=== PATIENT | male | born 1950 | race Caucasian/White ===

== ENCOUNTER 2016-10-19 09:32 | Inpatient (IN) | payer OTHER, MEDICARE ==
[2016-10-10 13:36] LABS: HEMATOCRIT 42.6 % (40.0-51.0); HEMOGLOBIN 13.9 g/dL (13.6-17.8)
[2016-10-10 13:53] LABS: BUN (BLOOD UREA NITROGEN) 9 MG/DL (6-23); CALCIUM, SERUM 8.6 MG/DL (8.5-10.4); CHLORIDE, SERUM 101 MMOL/L (96-112); CO2 (CARBON DIOXIDE) 31 MMOL/L (24-34); CREATININE 0.96 MG/DL (0.70-1.30); GFR AFRICAN AMERICAN 96 ML/MIN (>=60); GFR NON AFRICAN AMERICAN 83 ML/MIN (>=60); GLUCOSE, SERUM 188 MG/DL (60-99); SODIUM, SERUM 140 MMOL/L (135-148)
--- NOTE | ~2016-10-19 | PREOPHP ---
PreOp History and Physical [place] [id number] [facility] [place]. [address] NAME: GERARD WALDEN : 52 STATUS : ADM IN PAT#: [id number] AGE: 66 ADM/REG DATE : 10/19/16 MR#: [id number] REPORT SERV DATE: 10/20/16 DICTATED BY: AGUILAR SNOW DATE: 10/20/16 REPORT STATUS : Draft TRANSCRIBED BY: BRIGID DATE: 10/20/16 CHIEF COMPLAINT: Back pain. HISTORY OF PRESENT ILLNESS: The patient is a pleasant, 66-year-old with intractable back and lower extremity pain. He has failed multiple attempts at conservative treatment. After discussion of risks and benefits, elects to proceed with surgical intervention. REVIEW OF SYSTEMS: He denies any chest pain, shortness of breath, and bowel or bladder changes. ALLERGIES: DENIED. HOME MEDICATIONS: Lipitor, Neurontin, hydrocodone, Lantus, Humalog, Avapro, Synthroid, Lovenox, and Coumadin. PAST MEDICAL HISTORY: Diabetes, hypothyroidism, peripheral vascular disease, sleep apnea, history of DVT, chronic anticoagulation. FAMILY HISTORY: Noncontributory. PHYSICAL EXAMINATION: VITALS: Height 6 feet 3 inches, weight 282. GENERAL: The patient is healthy appearing, no acute distress at this time. PSYCH: He is alert and oriented x3. Normal mood and affect. Gait is antalgic. VASCULAR: No extremity swelling. SPINE: Forward flexed kyphotic posture with flat back. NEUROLOGIC: Strength in lower extremities remains neurologically intact. No focal deficits. HEART: Regular rate and rhythm. LUNGS: Clear to auscultation. ABDOMEN: Soft, nontender, nondistended with good bowel sounds. BREASTS: Deferred. RECTAL: Deferred. IMAGING: I have reviewed the MRI as well as x-rays. The patient does have a flat back deformity with loss of lordosis. He has L1 through S1 disc disease and stenosis with nerve root compression. ASSESSMENT: Degenerative scoliosis with kyphotic deformity from flat back. L1-S1 disc disease and stenosis. Chronic anticoagulation. PLAN: The patient presents today for surgical intervention. Consent was obtained. All questions were answered. We will have Dr. Del Rio from Vascular Surgery place an IVC filter due to the patient's coagulopathy. We will do this preoperatively and then plan for the Spine Surgery to follow that. PreOp History and Physical [facility] [address] [address] NAME: GERARD WALDEN : 52 STATUS : ADM IN PAT#: [id number] AGE: 66 ADM/REG DATE : 10/19/16 MR#: [id number] REPORT SERV DATE: 10/20/16 DICTATED BY: AGUILAR SNOW DATE: 10/20/16 REPORT STATUS : Draft TRANSCRIBED BY: BRIGID DATE: 10/20/16 BRYON/BRIGID Aguilar Snow DO / [id number] CC: DO PASHA Doan
--- NOTE | ~2016-10-19 | CN ---
Consultation Report [place] [address] [place]. [address] NAME: GERARD NARANJO : 52 STATUS : ADM IN PAT#: [id number] AGE: 66 ADM/REG DATE : 10/19/16 MR#: [id number] REPORT SERV DATE: 10/26/16 DICTATED BY: Ariadna MORE DATE: 10/26/16 REPORT STATUS : Draft TRANSCRIBED BY: MODGertrudis DATE: 10/26/16 CONSULTATION DATE OF CONSULTATION: 10/26/2016 CHIEF COMPLAINT: Postoperative urinary retention. HISTORY OF PRESENT ILLNESS: Mr. Naranjo is a 66-year-old white male, admitted on 10/19/2016 for some complicated spinal surgery. He had a stage procedure on 10/19/2016 and 10/22/2016 with an L1-S1 laminectomy and fusion with rods. He is had two voiding trials and failed both. The catheter was replaced yesterday for an unknown large volume. I saw him in 12/2011 when the nurses wanted to place a Pérez catheter. At that time, it appeared to me that he had probably some balloon trauma, and I was able to place a catheter at the bedside. He denies any voiding dysfunction prior to this hospitalization. PAST MEDICAL HISTORY: 1. Diabetes with neuropathy. 2. Hypertension. 3. Dysrhythmia. 4. DVT. 5. COPD. 6. Factor V deficiency. 7. Chronic back pain. 8. Arthritis. 9. Sleep apnea. 10.Spinal stenosis. 11.Hypothyroidism. PAST SURGICAL HISTORY: 1. As above. 2. Vein stripping. 3. Cholecystectomy. 4. Cardiac catheterization. 5. Femur fracture. 6. Left hip fracture. MEDICATIONS: Lipitor, Neurontin, insulin, Avapro, levothyroxine, and Coumadin. ALLERGIES: NO KNOWN DRUG ALLERGIES. SOCIAL HISTORY: The patient is . Previous smoker. Occasional alcohol use. FAMILY HISTORY: Negative for urologic disease. Consultation Report [place] [address] [place]. [address] NAME: GERARD NARANJO : 52 STATUS : ADM IN PAT#: [id number] AGE: 66 ADM/REG DATE : 10/19/16 MR#: [id number] REPORT SERV DATE: 10/26/16 DICTATED BY: Ariadna MORE DATE: 10/26/16 REPORT STATUS : Draft TRANSCRIBED BY: BRIGID DATE: 10/26/16 REVIEW OF SYSTEMS: A full 12-point review of systems is negative except as noted above. PHYSICAL EXAMINATION: GENERAL/VITAL SIGNS: Alert 66-year-old white male, afebrile, with normal vital signs. HEENT: Normocephalic and atraumatic. CHEST: No respiratory distress. HEART: Regular rate and rhythm. ABDOMEN: Protuberant, nontender, nondistended. GENITOURINARY: Normal external genitalia. Indwelling Pérez catheter draining clear urine. EXTREMITIES: No peripheral edema noted. NEUROLOGIC: The patient is ambulatory with help. PERTINENT LABORATORY DATA: Creatinine 0.75. White count 5700. Urinalysis, none obtained this admission. IMPRESSION: Postoperative urinary retention with no prior voiding dysfunction. PLAN: I would leave the Pérez for five to seven days and plan a voiding trial. He is going to rehab. They may want to do that there. If not, he is to follow up in my office for an painter and decorator appointment and discuss a voiding trial with plans to proceed as indicated depending upon how he does. I have told this to the patient, and he appears to understand. LIEN/BRIGID Ariadna More M.D. / [id number] CC: Aguilar Snow, PASHA ROLLINS
--- NOTE | ~2016-10-19 | CN ---
Consultation Report [facility] [address] [place]. [address] NAME: ORTEGA WALDEN : 52 STATUS : ADM IN PAT#: [id number] AGE: 66 ADM/REG DATE : 10/19/16 MR#: [id number] REPORT SERV DATE: 10/25/16 DICTATED BY: MELYSSA RAMÍERZ DATE: 10/25/16 REPORT STATUS : Draft TRANSCRIBED BY: MODL DATE: 10/25/16 DATE OF CONSULTATION: 10/24/2016 REASON FOR CONSULTATION: Consulted for hypertension/COPD/medical management. IDENTIFYING DATA: 1. PCP, Dr. Maykel Aguilar who is in [place], [place]. 2. [employer] Crew Lead, Dr. Haider Ahn. 3. Surgeon, Dr. Ortega Del Rio, who placed an IVC filter. 4. Corrugated Sheet Material Sheeter, Dr. Ortega Swain. 5. Orthopedist, Dr. Gigi Brown. 6. Urology, Dr. Ariadna Hidalgo. 7. Presently orthopedist, Dr. Aguilar Snow. HISTORY OF PRESENT ILLNESS: This is a 66-year-old male who was admitted by Dr. Aguilar Snow for intractable back and lower extremity pain that failed multiple outpatient conservative treatments. He was first scheduled on 10/19/2016 for a lumbar laminectomy. The surgery had to be stopped midway through the procedure because of the patient having bleeding and wheezing. The patient was taken to the PACU and then brought up to the MICU. At that time, he was under the care of the sanitation director. He had a CTA of the chest to rule out a pulmonary embolism. The patient also has a history of factor V Leiden deficiency, a DVT about 20 years ago. He had been taking Coumadin for the last four to five years, and during this procedure, he had to have an IVC filter placed by Dr. Ortega Del Rio. Postoperatively, there was a second surgery on 10/22/[address] Snow continued the patient's laminectomy of L1-S1 with decompression and fusion of T11 to the ilium posterolaterally. The patient has a history of previous DVT, which he is on chronic anticoagulation for factor V Leiden deficiency. He has a history also of dysrhythmias, neuropathy, obstructive sleep apnea, on home CPAP, as well as being a diabetic since 1991. The hospitalist group has been consulted for management of the patient's hypertension and COPD as well as overall medical management. The patient's history was obtained through careful interview with the patient coupled with review of [employer] and [employer]. PAST MEDICAL HISTORY: 1. Diabetic neuropathy. 2. Hypertension. 3. Dysrhythmias. 4. Deep venous thrombosis, on chronic anticoagulation. 5. Factor V Leiden deficiency. 6. Obstructive sleep apnea, on home CPAP. 7. Chronic back pain. 8. Arthritis. 9. Chronic obstructive pulmonary disease. 10.Lumbar spinal stenosis. Consultation Report [facility] [address] [place]. [address] NAME: ORTEGA WALDEN : 52 STATUS : ADM IN [facility]#: [id number] AGE: 66 ADM/REG DATE : 10/19/16 MR#: [id number] REPORT SERV DATE: 10/25/16 DICTATED BY: MELYSSA RAMÍREZ DATE: 10/25/16 REPORT STATUS : Draft TRANSCRIBED BY: BRIGID DATE: 10/25/16 11.Urinary retention. 12.Diabetes, questionable, some dictation states type 1, other dictations states type 2, which he was diagnosed in 1991, which his age would have been approximately 41 years old. He does state that his average blood sugar at home at that time prior to hospitalization was 95 to 115. 13.Hypothyroidism. HOME MEDICATIONS: 1. Lipitor 10 mg p.o. at bedtime. 2. Neurontin 800 mg p.o. at 8 a.m. and 12 noon. 3. Neurontin 1600 mg p.o. at bedtime. 4. [place] 5/325 one tablet p.o. three times a day p.r.n. pain. 5. Lantus injection subcutaneous twice a day. No dose is actually listed. 6. Humalog injection subcutaneous for which the patient uses a sliding scale. 7. Avapro 150 mg p.o. daily. 8. Levothyroxine 225 mcg p.o. daily. 9. Coumadin 9 mg p.o. daily. ALLERGIES: NO KNOWN ALLERGIES TO MEDICATIONS. THE PATENT DOES LIST GLUTEN AN ALLERGY. SOCIAL HISTORY: The patient is for approximately 44 years, has 3 grown children. Uses a cane at home. He does have a 2-cassie home. Previous smoker, quit about 25 years ago. Does have occasional alcohol use, one to two drinks per week. No illicit drug use. FAMILY HISTORY: The patient has 2 brothers who are alive and healthy. His mother and father both are from lung cancer and were heavy smokers. SURGICAL HISTORY: 1. Cholecystectomy in 1997. 2. Colonoscopy, 2008. 3. Cardiac cath, 2006. 4. Femur fracture in 2002. 5. Vein ligation in 1991. 6. Echo on 08/22/2016. 7. Left hip repair in 2011. 8. Stress test in 2006. REVIEW OF SYSTEMS: Negative other than what is included with HPI. The patient is alert and oriented. States no shortness of breath. No nausea or vomiting. No abdominal pain. No chest pain. No fever. Displays no agitation or confusion lying in bed, has applied his BiPAP for sleep. PHYSICAL EXAMINATION: VITAL SIGNS: From today, blood pressure 124/65, respiratory rate 18, heart rate 110, temperature 98.2, O2 saturation 93% on 3 L nasal cannula. Consultation Report [address] [place]. [address] NAME: ORTEGA WALDEN : 52 STATUS : ADM IN [facility]#: [id number] AGE: 66 ADM/REG DATE : 10/19/16 MR#: [id number] REPORT SERV DATE: 10/25/16 DICTATED BY: MELYSSA RAMÍREZ DATE: 10/25/16 REPORT STATUS : Draft TRANSCRIBED BY: BRIGID DATE: 10/25/16 GENERAL: This is an obese male 66 years old resting in bed in no acute distress. NEURO: His head is atraumatic, normocephalic. He is alert and oriented x3. Cranial nerves 2 through 12 are intact. His mood is appropriate. NECK: Supple. Trachea is midline. No JVD noted. No obvious thyromegaly or lymphadenopathy. EENT: His sclerae are nonicteric. Pupils are equal and reactive to light. Nares are patent. Mucous membranes moist. Tongue midline without deviation. Soft palate rises equally on phonation. CHEST: No pain with palpation. LUNGS: The patient has normal respiratory effort. He does have some expiratory wheezing. He states he has COPD. CARDIOVASCULAR: S1, S2. He is on telemetry. He is noted to have a sinus tachycardia with a rate of 101. ABDOMEN: Obese, soft, nontender. Active bowel sounds. No palpable organomegaly. Last bowel movement was on 10/19/2016 for which he state he has received medication for constipation. EXTREMITIES: He has normal distal pulses. No calf tenderness. He does have SCDs in place and he has lower extremity edema that is chronic. Surgical wound site dressing clean, dry, and intact. SKIN: Warm and dry. No unusual rashes or lesions. Normal color and turgor. PSYCH: The patient is cooperative, appropriate mood and affect. LABORATORY DATA: 1. Sodium 136, potassium 4.6, chloride 99, bicarb 22.4, BUN 9, creatinine 0.66. GFR 118, glucose 172, calcium 7.6, magnesium 1.8, phosphorus 1.8. White blood cells 6.1, hemoglobin 7.3, hematocrit 20.8, platelets 135, INR 1.1. 2. Chest x-ray on 10/23/2016 showed no new focal airspace disease. 3. TSH is 2.950 and free T4 on the chart was 1.65. 4. EKG on 10/10/2016 showed a sinus rhythm with a sinus arrhythmia, left axis deviation and incomplete left bundle-branch block, which showed an abnormal EKG. The patient had a cath on 03/31/2005, which showed normal coronary arteries and an EF of 65%. The patient had a sleep study on 04/03/2007. He is now on CPAP at bedtime for sleep apnea. ASSESSMENT AND PLAN: 1. Diabetes. The patient has been diabetic since 1991. He states his blood sugars he checks at times b.i.d. He averages 125 to 130. We will contact for a tobacco prevention health educator regarding diet monitoring if not already done. He will have a hemoglobin A1c checked in the morning. He is on Levemir b.i.d. and a sliding scale, which his blood sugars have been running high. We have changed him to a level 3 with a hypoglycemic protocol. 2. Hypertension. He does have a history of dysrhythmias. Aware. We will continue his Avapro and continue telemetry. 3. Neuropathy. Aware. He is a diabetic. We will continue his Neurontin. 4. Hypothyroidism. Aware. We will continue the patient's Synthroid. He has already had a TSH and a free T4 on the chart. Consultation Report [facility] [address] [place]. [address] NAME: ORTEGA WALDEN : 52 STATUS : ADM IN [facility]#: [id number] AGE: 66 ADM/REG DATE : 10/19/16 MR#: [id number] REPORT SERV DATE: 10/25/16 DICTATED BY: MELYSSA RAMÍREZ DATE: 10/25/16 REPORT STATUS : Draft TRANSCRIBED BY: BRIGID DATE: 10/25/16 5. Hyperlipidemia. Aware. The patient's Lipitor will be continued daily. 6. Obstructive sleep apnea where the patient has a history also of chronic obstructive pulmonary disease. Aware. He uses home CPAP. He will have a CPAP at bedtime and we will have albuterol nebs q.6 hours p.r.n. if he is short of breath or wheezing. 7. The patient has a history of factor V Leiden deficiency and having a deep venous thrombosis. Aware. Because of the bleeding postoperatively, the patient is off anticoagulation at present time. He has had an IVC filter placed and he has SCDs in place for his deep venous thrombosis prophylaxis. We will continue to monitor for any bleeding, a.m. labs, BMP, magnesium, CBC, hemoglobin A1c, and phosphorus. The hospitalist group would like to thank you for this consultation. Please let us know if we can be of any further assistance. ARPIT Melyssa Ramírez NP / [id number] CC: Aguilar Snow DO
--- NOTE | ~2016-10-19 | OP ---
Record Of Operation [facility] [address] [place]. [address] NAME: GERARD WALDEN : 52 STATUS : ADM IN PAT#: [id number] AGE: 66 ADM/REG DATE : 10/19/16 MR#: [id number] REPORT SERV DATE: 10/19/16 DICTATED BY: AGUILAR SETHI DATE: 10/19/16 REPORT STATUS : Draft TRANSCRIBED BY: MODL DATE: 10/19/16 DATE OF PROCEDURE: 10/19/2016 PREOPERATIVE DIAGNOSES: Degenerative scoliosis with flat back deformity, L1-S1 disc disease and stenosis, lumbar radiculopathy, intractable pain. POSTOPERATIVE DIAGNOSES: Degenerative scoliosis with flat back deformity, L1-S1 disc disease and stenosis, lumbar radiculopathy, intractable pain. PROCEDURE: T11 to ilium posterior segmental spinal instrumentation, use of neuromonitoring, use of intraoperative O-arm CT scan with computer navigation. The remaining portion of the procedure is going to be staged, bring him back likely on Sunday. Due to the amount of blood loss that we had encountered at the end of the current part of the procedure, I felt that it would be safest to bring him back another day for the remainder. He remained completely stable at this time, but the remaining work to be done would likely put him over a level that would no longer be safe to proceed. I discussed this with his and she agreed so that will be our plan. SURGEON: Aguilar Sethi DO. ANESTHESIA: General. ESTIMATED BLOOD LOSS: 600 mL. COMPLICATIONS: None. INDICATIONS: The patient is a 66-year-old with intractable back and leg pain failed conservative treatment. After discussion of risks and benefits, elected to proceed with surgery. PROCEDURE IN DETAIL: I identified the patient in the holding area. Consent was obtained. Went to the operating room. Underwent general anesthesia with endotracheal intubation. Prepped draped in the usual sterile fashion. Operative safety pause was performed, and then we proceeded. A midline longitudinal incision was made from T11 down to the ilium, taken through the fascial layer. Paraspinous muscles subperiosteally elevated to the tips of transverse processes. Self-retaining retractors were placed. O-arm registration frame placed on the spinous process. O-arm brought in for intraoperative CT scan. Computer registration materials were verified. Under computer guidance, pedicle screws from [employer] were placed from T11 down through the ilium. O-arm was brought back in to verify good placement of instrumentation. At this point, as detailed above, the surgery was stopped and we will plan to do the 2nd half of the surgery on Sunday as long as patient is medically stable. Irrigation was performed. Hemostasis was achieved. Subfascial drain was placed. Layered closure was performed. Sterile dressings were applied. The patient was awoken and extubated and taken to the recovery room in stable condition. OPERATIVE FINDINGS: L1-S1 disc disease and stenosis. Degenerative scoliosis with flat back Record Of Operation [facility] [address] [place]. [address] NAME: GERARD WALDEN : 52 STATUS : ADM IN [facility]#: [id number] AGE: 66 ADM/REG DATE : 10/19/16 MR#: [id number] REPORT SERV DATE: 10/19/16 DICTATED BY: AGUILAR SETHI DATE: 10/19/16 REPORT STATUS : Draft TRANSCRIBED BY: MODGertrudis DATE: 10/19/16 deformity. No sustained neuromonitoring alerts occurred. BRYON/BRIGID Aguilar Sethi DO / [id number] CC: Aguilar Sethi DO
--- NOTE | ~2016-10-19 | CN ---
Consultation Report [facility] [address] [place]. [address] NAME: GERARD WALDEN : 52 STATUS : ADM IN [facility]#: [id number] AGE: 66 ADM/REG DATE : 10/19/16 MR#: [id number] REPORT SERV DATE: 10/20/16 DICTATED BY: ARUN RODAS DATE: 10/19/16 REPORT STATUS : Draft TRANSCRIBED BY: MODL DATE: 10/19/16 CONSULTATION DATE OF CONSULTATION: 10/19/2016 TIME: 2012 hours. Seen in MICU bed 1. HISTORY OF PRESENT ILLNESS: I was called by anesthesiologist postop. He is a patient of Dr. Snow, the spinal surgeon. He was undergoing lumbar laminectomy. He had to stop midway through because of wheezing and bleeding. The patient was taken to the PACU yesterday and brought up to the ICU. Prior to this, the patient was taken to the CT scanner for CTA of the chest to rule out pulmonary embolism. He has a history of factor V Leiden deficiency. He had DVT about 20 years ago. He has been taking Coumadin for the last four years. During this operation, he had IVC filter placed. The patient is now awake and responsive, on THERMITE WELDER. PAST MEDICAL HISTORY: Significant for diabetes, hypothyroidism, peripheral vascular disease, sleep apnea, history of DVT, and chronic anticoagulation. The patient has had a cholecystectomy, colonoscopy, femoral and femur repair in the past. SOCIAL HISTORY: He used to smoke, but now quit. He is a social drinker. FAMILY HISTORY: Lung cancer positive in mother and father. HOME MEDICATIONS: Include atorvastatin 10 mg, gabapentin 800 mg tablet, Humalog KwikPen in SS solution, hydrocodone acetaminophen 5/325, irbesartan 150, Lantus SoloSTAR 100 units solution 20 mg/mL solution, levothyroxine 25 mcg tablet, warfarin 1 mg, levothyroxine 200 mcg; medications are noted. ALLERGIES: NO KNOWN ALLERGIES. REVIEW OF SYSTEMS: Otherwise negative and noncontributory. PHYSICAL EXAMINATION: VITAL SIGNS: Blood pressure of 98/53, pulse is slightly irregular but appears to be sinus rhythm. He is afebrile. GENERAL: He is awake. HEENT: Head is normocephalic. Sclerae and conjunctivae are clear. NECK: Supple. CHEST: Decreased breath sounds. Clear to auscultation and percussion. No wheezing or Rhonchi. CARDIAC: S1 and S2. No murmurs or gallops, slightly irregular. ABDOMEN: Soft and nontender. No masses. Scar from previous cholecystectomy. Consultation Report [facility] [address] [place]. [address] NAME: GERARD WALDEN : 52 STATUS : ADM IN [facility]#: [id number] AGE: 66 ADM/REG DATE : 10/19/16 MR#: [id number] REPORT SERV DATE: 10/20/16 DICTATED BY: ARUN RODAS DATE: 10/19/16 REPORT STATUS : Draft TRANSCRIBED BY: MODL DATE: 10/19/16 EXTREMITIES: No clubbing, cyanosis, or edema. NEUROLOGIC: Cranial nerves 2 through 12 appear to be intact. He can move all extremities. LABORATORY DATA: Laboratory data shows a sodium 140, potassium 4.8, chloride 106, CO2 of 23, BUN 19, creatinine 0.4, glucose 215, calcium 7.5. CBC shows H and H of 11.5 and 33.8, white count 7200, platelet count 39,000. Arterial blood gas at 1840 hours shows pH 7.33, pCO2 of 44, pO2 of [address] of the chest shows: 1. No CTA evidence of pulmonary embolism. 2. Bibasilar subsegmental atelectasis. 3. Status post recent spine fusion surgery, pedicle screws from T11 and L1. Small amounts of gas in paraspinal soft tissue plain consistent with recent surgery. A surgical drain within soft tissue posterior thorax and right-sided up to T12 level posterior elements. 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 Chest x-ray shows small lung volumes bibasilar atelectasis. Anesthesia record reviewed. Urine output of 400 and did not record any estimated blood loss. The patient is currently on no pressors. IMPRESSION: 1. Status post surgery, status post Rafaela filter, history of factor V Leiden deficiency, no evidence of pulmonary emboli. Continue present pain medications. Will return to surgery on (I believe) Sunday. 2. Diabetes. 3. Hypothyroidism. PLAN: Continue present therapy. RP/MODL Arun Rodas M.D. / [id number] CC: DO Maykel Doan
--- NOTE | ~2016-10-19 | OP ---
Record Of Operation [facility] [address] [place]. [address] NAME: GERARD WALDEN : 52 STATUS : ADM IN PAT#: [id number] AGE: 66 ADM/REG DATE : 10/19/16 MR#: [id number] REPORT SERV DATE: 10/22/16 DICTATED BY: AGUILAR SNOW DATE: 10/22/16 REPORT STATUS : Draft TRANSCRIBED BY: MODL DATE: 10/22/16 DATE OF PROCEDURE: 10/22/2016 PREOPERATIVE DIAGNOSIS: L1-S1 disk disease and stenosis, degenerative scoliosis, flat back deformity. POSTOPERATIVE DIAGNOSIS: L1-S1 disk disease and stenosis, degenerative scoliosis, flat back deformity. PROCEDURE: This is the second stage of a procedure that was started on 10/19/2016. This portion today included T11 to ilium posterolateral fusion bilaterally. Connection of previously placed pedicle screws with bilateral rods T11 to the ilium. Use of local morcellized autograft and allograft bone matrix, neuromonitoring, laminectomy L1-S1 with decompression of bilateral L1-S1 nerve roots. SURGEON: Aguilar Snow DO. ANESTHESIA: General. ESTIMATED BLOOD LOSS: 800 mL. 450 mL returned via Cell Saver. COMPLICATIONS: None. INDICATIONS: Please see previous operative note from 10/19/2016 for indications. DESCRIPTION OF PROCEDURE: I identified the patient in the ICU. Consent was obtained. Went to the operating room. Underwent general anesthesia with endotracheal intubation. Prepped and draped in the usual sterile fashion. Operative safety pause was performed, then we proceeded. A midline longitudinal incision was made over the previous incision. Muscles were opened again and self-retaining retractors were placed. Rongeur was used to remove spinous process and underlying lamina at L1-S1. Kerrison removed remaining lamina and underlying ligamentum flavum. Performed foraminotomies and partial facetectomies L1-S1 bilaterally. Rods were cut and contoured to appropriate shape and length, placed over the screws from T11 to the ilium. Setscrews were placed and final tightened. A high-speed decorticating bur was used to decorticate the remaining bony surfaces T11 to the ilium. Irrigation performed. Hemostasis achieved. Local morcellized autograft and allograft bone matrix were packed over the decorticated surfaces T11 to the ilium. Subfascial drain was placed. Vancomycin powder sprinkled over the surgical wound. Layered closure performed. Sterile dressings applied. The patient awoke and extubated and taken to the recovery room in stable condition. OPERATIVE FINDINGS: Degenerative scoliosis with flat back deformity, L1-S1 disk disease. No sustained neuromonitoring alerts occurred. Record Of Operation [facility] [address] [place]. [address] NAME: GERARD WALDEN : 52 STATUS : ADM IN [facility]#: [id number] AGE: 66 ADM/REG DATE : 10/19/16 MR#: [id number] REPORT SERV DATE: 10/22/16 DICTATED BY: AGUILAR SNOW DATE: 10/22/16 REPORT STATUS : Draft TRANSCRIBED BY: MODGertrudis DATE: 10/22/16 BRYON/BRIGID Aguilar Snow DO / [id number] CC: DO REY Doan DEVIN L
--- NOTE | ~2016-10-19 | OP ---
Record Of Operation [facility] [address] [place]. [address] NAME: ORTEGA WALDEN : 52 STATUS : ADM IN [facility]#: [id number] AGE: 66 ADM/REG DATE : 10/19/16 MR#: [id number] REPORT SERV DATE: 10/20/16 DICTATED BY: ORTEGA CRUZ DATE: 10/20/16 REPORT STATUS : Draft TRANSCRIBED BY: MODL DATE: 10/20/16 DATE OF PROCEDURE: 10/19/2016 PREOPERATIVE DIAGNOSES: 1. Factor V Leiden deficiency. 2. Previous deep vein thrombosis. POSTOPERATIVE DIAGNOSES: 1. Factor V Leiden deficiency. 2. Previous deep vein thrombosis. PROCEDURE PERFORMED: Placement of inferior vena cava filter being a Linn. SURGEON: Ortega Cruz M.D. PROCEDURE IN DETAIL: The patient was placed under general anesthesia for a posterior spine procedure. Both groins were prepped and draped in a sterile fashion. The right femoral vein was cannulated with ultrasound direction needle wire and sheath were placed. A wire was placed into the vena cava and the sheath for the Fannin filter was then placed into the inferior vena cava. Inferior vena cava angiogram done showing that the vena cava was widely patent and the level of the renal arteries easily identified. The Linn filter then placed into the lower portion of the vena cava due to the size of the cava. This was deployed just above the confluence of the iliac veins. Repeat film showing the filter was in good position. The sheath was then removed from the groin and pressure dressing was applied. ESTIMATED BLOOD LOSS: Negligible. CONDITION: The patient was stable. MG/MODL Ortega Cruz M.D. / [id number] CC: Aguilar Snow, DO Maykel Aguilar MD
--- NOTE | ~2016-10-19 | DS ---
Discharge Summary [facility] [address] [place]. [address] NAME: ORTEGA WALDEN : 52 STATUS : DIS IN PAT#: [id number] AGE: 66 ADM/REG DATE : 10/19/16 MR#: [id number] REPORT SERV DATE: 11/08/16 DICTATED BY: AGUILAR SNOW DATE: 11/07/16 REPORT STATUS : Draft TRANSCRIBED BY: BRIGID DATE: 11/07/16 Data Collection from hospitalization DISCHARGE DIAGNOSES: 1. Degenerative scoliosis with flat back deformity. 2. L1-S1 disk disease and stenosis. 3. Lumbar radiculopathy. 4. Intractable pain. 5. Diabetes. 6. Hypertension. 7. Factor V Leiden deficiency. 8. Obstructive sleep apnea-on home CPAP. 9. Hypothyroidism. 10.Dysrhythmia. 11.Peripheral vascular disease. 12.Former smoker. CONSULTATIONS: Dr. Elvis Rodas. NP. Ariadna Carrero M.D. Ortega Del Rio M.D. PROCEDURES PERFORMED: 1. Placement of inferior vena cava filter-Gregg, 10/19/2016. 2. T11 to ilium posterior segmental spinal instrumentation, use of neuromonitoring, use of intraoperative O-arm CT scan with computer navigation (the remaining portion of the procedure would be staged), 10/19/2016. 3. Second stage-T11 to ilium posterolateral fusion bilaterally, connection of previously placed pedicle screws with bilateral rods T11 to the ilium. Use of local morcellized autograft and allograft bone matrix, neuromonitoring, laminectomy L1-S1 with decompression of bilateral L1-S1 nerve root, 10/22/2016. 4. CTA of the chest, 10/19/2016. PATHOLOGY: Soft tissue, thoracic/lumbar spine excision-cartilage and skeletal muscle. Tissue from lumbar spine area-benign skeletal muscle and soft tissue, including vascular structure with focal thrombotic component, benign bone and cartilage with focal degenerative changes, medullary bone normocellular bone marrow particles with trilineage hematopoiesis. No metastatic malignancy or lymphoid or plasma cell neoplasm. DISCHARGE MEDICATIONS: Lipitor 10 mg at bedtime, Neurontin 800 mg at 8 a.m. and noon, Neurontin 1600 mg at bedtime, NovoLog injection insulin as instructed, levothyroxine 225 mcg daily, Levemir as instructed, Mylanta 30 mL as needed, Dulcolax 15 mg as needed, Flexeril 10 mg every eight hours as needed, milk of magnesia 30 mL twice a day as needed, Percocet 7.5/325 one to two tablets every four hours as needed, Proventil 3 mL via inhaler every six hours as needed, Avapro 150 mg daily, Jantoven 9 mg daily. CONDITION AT DISCHARGE: Stable. DISPOSITION: The patient was discharged to [facility] on a 2000-calorie diabetic diet with activities as instructed. Discharge Summary [place] [id number] [facility] [place]. [address] NAME: ORTEGA WALDEN : 52 STATUS : DIS IN PAT#: [id number] AGE: 66 ADM/REG DATE : 10/19/16 MR#: [id number] REPORT SERV DATE: 11/08/16 DICTATED BY: AGUILAR SNOW DATE: 11/07/16 REPORT STATUS : Draft TRANSCRIBED BY: BRIGID DATE: 11/07/16 HOSPITAL COURSE: This is a 66-year-old man, who has intractable back pain and lower extremity pain. He had failed multiple attempts at conservative treatment. The patient has degenerative scoliosis with kyphotic deformity from flat back. He has L1-S1 disk disease and stenosis. He is on chronic anticoagulation. Treatment options were discussed and it was elected to proceed with surgical intervention. He was admitted to the hospital at this time for further evaluation and treatment. Upon admission, it was felt that he would need to have an IVC filter placed due to coagulopathy. This would be performed by Dr. Ortega Del Rio. The patient was taken to the operating room, where he underwent the above-mentioned procedures by myself and Dr. Ortega Del Rio and tolerated this well and there were no complications. Postoperatively, the patient was seen by Dr. Elvis Rodas. He had been called by the anesthesiologist postoperatively. The patient had developed wheezing and bleeding. A CTA of the chest had been performed to rule out pulmonary embolism. The patient does have a history of factor V Leiden deficiency. About 20 years ago, he had a DVT. He had been taking Coumadin over the past four years. During his operation, he had an IVC filter placed. He was on the [employer] at this time and was awake and responsive. There was no CTA evidence of pulmonary embolism the following day. He had hypotension that morning. He had no bleeding. Levophed was started. His pain was controlled. A PICC line was inserted. On the , he remained stable on low-dose Levophed, using his home CPAP. Plans were being made to proceed with the second stage of his surgical intervention. Magnesium supplementation was given. On 10/22/2016, he was taken back to the operating room, where he underwent the above-mentioned procedure. He tolerated this well and there were no complications. On 10/23/2016, he was awake and alert. He was on an insulin drip. This was going to be changed to basal and sliding scale insulin. IV fluids were continued as well as pressors. Levophed was being decreased. He was evaluated by Physical Therapy. [employer] was discontinued. On the , his drain was changed and transfused 1 unit of packed red blood cells. He was seen in consultation by Melyssa Valadez regarding hypertension, COPD, and medical management. He was using CPAP at bedtime for his sleep apnea. Sodium level was 136, white count was 6.1. The patient had undergone a sleep study in 2006. He was on CPAP at bedtime for his sleep apnea. He has been a diabetic since 1991. He was going to undergo diabetes education as well as be placed on a diabetic diet and blood sugar monitoring. Hemoglobin A1c was going to be checked. The patient was on Levemir. His blood sugars had been running high. He was changed to level 3 with hypoglycemic protocol. Avapro was continued and he remained on telemetry. Neurontin was continued for his neuropathy. We continued the patient's Synthroid. Lipitor would also be continued daily. SCDs were in place for DVT prophylaxis. He underwent diabetes education. The patient had not had a bowel movement yet. Other than his discomfort, he had no new complaints. Level 3 sliding scale insulin was continued. His hemoglobin A1c was 6.4. On the , he was seen by Dr. Ariadna Hidalgo regarding postoperative urinary retention. He has no prior history of voiding dysfunction. Urinalysis had not been obtained in this admission. He felt the patient should leave the Pérez catheter in place for five to seven days and then plan a voiding trial. He was going to go to rehab. Voiding trial would be performed. The patient appeared to understand. Levemir was increased. Discharge planning was performed. On 10/27/2016, blood glucose was under better control. He did have a bowel movement. The Pérez catheter remained in place. Discharge Summary [address] [place]. [address] NAME: ORTEGA WALDEN : 52 STATUS : DIS IN PAT#: [id number] AGE: 66 ADM/REG DATE : 10/19/16 MR#: [id number] REPORT SERV DATE: 11/08/16 DICTATED BY: AGUILAR SNOW DATE: 11/07/16 REPORT STATUS : Draft TRANSCRIBED BY: BRIGID DATE: 11/07/16 Discharge instructions were given. Due to his improved and stable condition, he was discharged to [facility] with the above-stated instructions. Information collected by: Gracia Escobedo I submit the above information as my discharge summary. SYLVIA/BRIGID Aguilar Snow DO / [id number] CC: DO REY Doan [facility] Ariadna Hidalgo M.D.
[~2016-10-19 09:32] MED LIST: AMIT25 PO; AVAP150 PO; HUMALOG SC; JANTOVEN6 MG PO; KLONO1 PO; LANTUS SC; LEVOTHYROXIN200 MCG PO; LIPITOR10 PO; LOVENOX IJ; NEUR800 PO; NORCO1 TA1 PO; ONE DAILY ESSE1 EACH PO
[2016-10-19 10:05] LABS: INTERNATIONAL NORMAL RATI 1.1 UNITS (-); PROTIME (NOT ORD) 14.4 SEC (12.0-14.5)
[2016-10-19 17:26] LABS: CARBOXYHEMOGLOBIN 0.1 % (0-3); DEVICE SM; HCO3 (ACTUAL BICARBONATE) 24.6 MEQ/L (23-27); HEMOBLOGIN CONTENT 12.2 G/DL (14-18); INSTRUMENT SERIAL # 11843; METHEMOGLOBIN 0.5 % (0-3); O2 CONTENT 15.7 VOL% (18-24); OPERATOR ID 18642; PCO2 (CO2 TENSION) 50 MMHG (35-45); PO2 (O2 TENSION) 70 MMHG (79-93); SAMPLE Arterial; pH 7.31 (7.37-7.43)
[2016-10-19 18:13] LABS: BASOPHILS 0.3 %; BASOPHILS ABSOLUTE 0.02 10/3/uL (0.0-0.16); EOSINOPHILS 0.1 %; EOSINOPHILS ABSOLUTE 0.01 10/3/uL (0.0-0.53); HEMOGLOBIN 11.5 g/dL (13.6-17.8); IMMATURE GRANULOCYTES 0.6 %; IMMATURE GRANULOCYTES ABSOLUTE 0.04 10/3/uL (0.0-0.11); LYMPHOCYTES 10.4 %; LYMPHOCYTES ABSOLUTE 0.75 10/3/uL (0.67-4.30); MEAN CORPUSCULAR HEMOGLOB 34.4 pg (26.0-34.0); MEAN PLATELET VOLUME 9.1 fL (9.2-13.0); MONOCYTES 4.7 %; MONOCYTES ABSOLUTE 0.34 10/3/uL (0.21-1.20); NEUTROPHILS 83.9 %; NEUTROPHILS ABSOLUTE 6.04 10/3/uL (2.02-8.40); PLATELET COUNT 139 10/3/uL (150-400); RBC DISTRIBUTION WIDTH 13.3 % (12.0-16.0); RED CELL COUNT 3.34 10/6/uL (4.7-6.1)
[2016-10-19 18:14] LABS: HEMATOCRIT 33.8 % (40.0-51.0); MANUAL DIFF NO %; MEAN CORPUSCULAR VOLUME 101.2 fL (80-100); WHITE BLOOD CELLS 7.2 10/3/uL (4.5-10.5)
[2016-10-19 18:28] LABS: CHLORIDE, SERUM 106 MMOL/L (96-112); CREATININE 0.84 MG/DL (0.70-1.30); GFR AFRICAN AMERICAN 106 ML/MIN (>=60); GFR NON AFRICAN AMERICAN 92 ML/MIN (>=60); GLUCOSE, SERUM 215 MG/DL (60-99); POTASSIUM, SERUM 4.8 MMOL/L (3.5-5.3); SODIUM, SERUM 140 MMOL/L (135-148)
[2016-10-19 18:29] LABS: BUN (BLOOD UREA NITROGEN) 19 MG/DL (6-23); CALCIUM, SERUM 7.5 MG/DL (8.5-10.4); CO2 (CARBON DIOXIDE) 23 MMOL/L (24-34)
[2016-10-19 18:44] LABS: BE (BASE EXCESS) -3.5 MEQ/L (0 +/- 2.5); CARBOXYHEMOGLOBIN 0.9 % (0-3); DEVICE NC; HCO3 (ACTUAL BICARBONATE) 22.4 MEQ/L (23-27); INSTRUMENT SERIAL # 11843; METHEMOGLOBIN 0.3 % (0-3); O2 CONTENT 16.5 VOL% (18-24); OPERATOR ID 35091; PCO2 (CO2 TENSION) 44 MMHG (35-45); PO2 (O2 TENSION) 63 MMHG (79-93); SAMPLE Arterial; pH 7.33 (7.37-7.43)
[2016-10-20 04:55] LABS: BASOPHILS 0.3 %; BASOPHILS ABSOLUTE 0.02 10/3/uL (0.0-0.16); EOSINOPHILS 0.4 %; EOSINOPHILS ABSOLUTE 0.03 10/3/uL (0.0-0.53); HEMATOCRIT 31.5 % (40.0-51.0); HEMOGLOBIN 10.4 g/dL (13.6-17.8); IMMATURE GRANULOCYTES 0.4 %; IMMATURE GRANULOCYTES ABSOLUTE 0.03 10/3/uL (0.0-0.11); LYMPHOCYTES 11.4 %; LYMPHOCYTES ABSOLUTE 0.76 10/3/uL (0.67-4.30); MEAN CORPUSCULAR VOLUME 102.9 fL (80-100); MEAN PLATELET VOLUME 9.5 fL (9.2-13.0); MONOCYTES ABSOLUTE 0.47 10/3/uL (0.21-1.20); NEUTROPHILS 80.5 %; NEUTROPHILS ABSOLUTE 5.37 10/3/uL (2.02-8.40); PLATELET COUNT 148 10/3/uL (150-400); RBC DISTRIBUTION WIDTH 13.4 % (12.0-16.0); RED CELL COUNT 3.06 10/6/uL (4.7-6.1); WHITE BLOOD CELLS 6.7 10/3/uL (4.5-10.5)
[2016-10-20 04:59] LABS: MANUAL DIFF NO %
[2016-10-20 05:12] LABS: BUN (BLOOD UREA NITROGEN) 22 MG/DL (6-23); CALCIUM, SERUM 7.5 MG/DL (8.5-10.4); CHLORIDE, SERUM 105 MMOL/L (96-112); CO2 (CARBON DIOXIDE) 22 MMOL/L (24-34); CREATININE 0.91 MG/DL (0.70-1.30); GFR AFRICAN AMERICAN 102 ML/MIN (>=60); GFR NON AFRICAN AMERICAN 88 ML/MIN (>=60); POTASSIUM, SERUM 5.3 MMOL/L (3.5-5.3); SODIUM, SERUM 137 MMOL/L (135-148)
[2016-10-20 05:14] LABS: GLUCOSE, SERUM 295 MG/DL (60-99)
[2016-10-20] MEDS ORDERED: LANTUS SQ (15:17)
[2016-10-20 19:15] LABS: BE (BASE EXCESS) -2.5 MEQ/L (0 +/- 2.5); CARBOXYHEMOGLOBIN 0.8 % (0-3); DEVICE NC; HCO3 (ACTUAL BICARBONATE) 22.4 MEQ/L (23-27); HEMOBLOGIN CONTENT 9.7 G/DL (14-18); INSTRUMENT SERIAL # 8083; METHEMOGLOBIN 0.4 % (0-3); O2 CONTENT 13.1 VOL% (18-24); PCO2 (CO2 TENSION) 39 MMHG (35-45); PO2 (O2 TENSION) 84 MMHG (79-93); SAMPLE Arterial; pH 7.38 (7.37-7.43)
[2016-10-21 04:07] LABS: BASOPHILS 0.3 %; BASOPHILS ABSOLUTE 0.02 10/3/uL (0.0-0.16); EOSINOPHILS 0.7 %; EOSINOPHILS ABSOLUTE 0.05 10/3/uL (0.0-0.53); HEMOGLOBIN 9.2 g/dL (13.6-17.8); IMMATURE GRANULOCYTES 0.4 %; IMMATURE GRANULOCYTES ABSOLUTE 0.03 10/3/uL (0.0-0.11); LYMPHOCYTES 10.1 %; LYMPHOCYTES ABSOLUTE 0.71 10/3/uL (0.67-4.30); MEAN CORPUS HGB CONC 33.5 g/dL (32.0-36.0); MEAN CORPUSCULAR HEMOGLOB 34.2 pg (26.0-34.0); MEAN CORPUSCULAR VOLUME 102.2 fL (80-100); MONOCYTES 11.7 %; MONOCYTES ABSOLUTE 0.82 10/3/uL (0.21-1.20); NEUTROPHILS 76.8 %; NEUTROPHILS ABSOLUTE 5.38 10/3/uL (2.02-8.40); PLATELET COUNT 126 10/3/uL (150-400); RBC DISTRIBUTION WIDTH 13.2 % (12.0-16.0); RED CELL COUNT 2.69 10/6/uL (4.7-6.1)
[2016-10-21 04:15] LABS: HEMATOCRIT 27.5 % (40.0-51.0); MANUAL DIFF NO %
[2016-10-21 04:28] LABS: CALCIUM, SERUM 7.9 MG/DL (8.5-10.4); CHLORIDE, SERUM 102 MMOL/L (96-112); CREATININE 0.83 MG/DL (0.70-1.30); GFR AFRICAN AMERICAN 107 ML/MIN (>=60); GFR NON AFRICAN AMERICAN 92 ML/MIN (>=60); PHOSPHORUS, SERUM 1.9 MG/DL (2.5-4.5); SODIUM, SERUM 137 MMOL/L (135-148)
[2016-10-21 04:31] LABS: BUN (BLOOD UREA NITROGEN) 18 MG/DL (6-23); CO2 (CARBON DIOXIDE) 27 MMOL/L (24-34); GLUCOSE, SERUM 180 MG/DL (60-99); POTASSIUM, SERUM 4.2 MMOL/L (3.5-5.3)
[2016-10-21 11:40] LABS: POTASSIUM, SERUM 3.9 MMOL/L (3.5-5.3)
[2016-10-21 14:26] LABS: FREE T4 1.65 NG/DL (0.76-1.46); ULTRASENSITIVE TSH 2.95 MCIU/ML (0.358-3.740)
[2016-10-22 03:57] LABS: BASOPHILS 0.5 %; BASOPHILS ABSOLUTE 0.03 10/3/uL (0.0-0.16); EOSINOPHILS 0.7 %; EOSINOPHILS ABSOLUTE 0.04 10/3/uL (0.0-0.53); HEMATOCRIT 26.4 % (40.0-51.0); HEMOGLOBIN 8.9 g/dL (13.6-17.8); IMMATURE GRANULOCYTES 0.5 %; IMMATURE GRANULOCYTES ABSOLUTE 0.03 10/3/uL (0.0-0.11); LYMPHOCYTES 9.7 %; LYMPHOCYTES ABSOLUTE 0.59 10/3/uL (0.67-4.30); MEAN CORPUS HGB CONC 33.7 g/dL (32.0-36.0); MEAN CORPUSCULAR HEMOGLOB 34.4 pg (26.0-34.0); MEAN CORPUSCULAR VOLUME 101.9 fL (80-100); MEAN PLATELET VOLUME 9.1 fL (9.2-13.0); MONOCYTES 13.5 %; MONOCYTES ABSOLUTE 0.82 10/3/uL (0.21-1.20); NEUTROPHILS 75.1 %; NEUTROPHILS ABSOLUTE 4.57 10/3/uL (2.02-8.40); PLATELET COUNT 116 10/3/uL (150-400); RBC DISTRIBUTION WIDTH 13.1 % (12.0-16.0); RED CELL COUNT 2.59 10/6/uL (4.7-6.1); WHITE BLOOD CELLS 6.1 10/3/uL (4.5-10.5)
[2016-10-22 04:02] LABS: MANUAL DIFF NO %
[2016-10-22 04:12] LABS: ALBUMIN 2.5 G/DL (3.5-5.0); CALCIUM, SERUM 7.4 MG/DL (8.5-10.4); CHLORIDE, SERUM 101 MMOL/L (96-112); CO2 (CARBON DIOXIDE) 31 MMOL/L (24-34); CREATININE 0.68 MG/DL (0.70-1.30); DIRECT BILIRUBIN 0.2 MG/DL (0.0-0.4); GFR AFRICAN AMERICAN 116 ML/MIN (>=60); GFR NON AFRICAN AMERICAN 100 ML/MIN (>=60); GLUCOSE, SERUM 154 MG/DL (60-99); POTASSIUM, SERUM 4.3 MMOL/L (3.5-5.3); SGOT(AST) 63 U/L (5-40); SGPT(ALT) 28 U/L (5-65); SODIUM, SERUM 139 MMOL/L (135-148); TOTAL PROTEIN 5.7 G/DL (6.0-8.5)
[2016-10-22 04:22] LABS: ALKALINE PHOSPHATASE 80 U/L (45-117); BUN (BLOOD UREA NITROGEN) 7 MG/DL (6-23); INDIRECT BILIRUBIN(NOT ORDER) 1.1 MG/DL (0.1-0.9); PHOSPHORUS, SERUM 2.6 MG/DL (2.5-4.5); TOTAL BILIRUBIN 1.3 MG/DL (0-1.2)
[2016-10-22 12:55] LABS: BASOPHILS 0.3 %; BASOPHILS ABSOLUTE 0.03 10/3/uL (0.0-0.16); EOSINOPHILS 0.8 %; EOSINOPHILS ABSOLUTE 0.08 10/3/uL (0.0-0.53); HEMATOCRIT 22.7 % (40.0-51.0); HEMOGLOBIN 7.8 g/dL (13.6-17.8); IMMATURE GRANULOCYTES 0.6 %; IMMATURE GRANULOCYTES ABSOLUTE 0.06 10/3/uL (0.0-0.11); LYMPHOCYTES 10.9 %; LYMPHOCYTES ABSOLUTE 1.07 10/3/uL (0.67-4.30); MANUAL DIFF NO %; MEAN CORPUS HGB CONC 34.4 g/dL (32.0-36.0); MEAN CORPUSCULAR HEMOGLOB 34.7 pg (26.0-34.0); MEAN CORPUSCULAR VOLUME 100.9 fL (80-100); MEAN PLATELET VOLUME 9.2 fL (9.2-13.0); MONOCYTES 10.5 %; MONOCYTES ABSOLUTE 1.03 10/3/uL (0.21-1.20); NEUTROPHILS 76.9 %; NEUTROPHILS ABSOLUTE 7.56 10/3/uL (2.02-8.40); PLATELET COUNT 135 10/3/uL (150-400); RED CELL COUNT 2.25 10/6/uL (4.7-6.1); WHITE BLOOD CELLS 9.8 10/3/uL (4.5-10.5)
[2016-10-22 13:05] LABS: BUN (BLOOD UREA NITROGEN) 6 MG/DL (6-23); CALCIUM, SERUM 7.2 MG/DL (8.5-10.4); CHLORIDE, SERUM 104 MMOL/L (96-112); CO2 (CARBON DIOXIDE) 31 MMOL/L (24-34); CREATININE 0.69 MG/DL (0.70-1.30); GFR AFRICAN AMERICAN 115 ML/MIN (>=60); GFR NON AFRICAN AMERICAN 100 ML/MIN (>=60); GLUCOSE, SERUM 154 MG/DL (60-99); POTASSIUM, SERUM 4.4 MMOL/L (3.5-5.3); SODIUM, SERUM 140 MMOL/L (135-148)
[2016-10-23 04:37] LABS: BASOPHILS 0.2 %; BASOPHILS ABSOLUTE 0.02 10/3/uL (0.0-0.16); EOSINOPHILS 0.2 %; EOSINOPHILS ABSOLUTE 0.02 10/3/uL (0.0-0.53); IMMATURE GRANULOCYTES 0.3 %; IMMATURE GRANULOCYTES ABSOLUTE 0.03 10/3/uL (0.0-0.11); LYMPHOCYTES 5.5 %; LYMPHOCYTES ABSOLUTE 0.58 10/3/uL (0.67-4.30); MEAN PLATELET VOLUME 9.4 fL (9.2-13.0); MONOCYTES ABSOLUTE 1.16 10/3/uL (0.21-1.20); NEUTROPHILS 82.8 %; NEUTROPHILS ABSOLUTE 8.73 10/3/uL (2.02-8.40); PLATELET COUNT 135 10/3/uL (150-400); RED CELL COUNT 1.97 10/6/uL (4.7-6.1); WHITE BLOOD CELLS 10.5 10/3/uL (4.5-10.5)
[2016-10-23 04:38] LABS: HEMATOCRIT 19.7 % (40.0-51.0); HEMOGLOBIN 6.9 g/dL (13.6-17.8); MANUAL DIFF NO %
[2016-10-23 04:57] LABS: BUN (BLOOD UREA NITROGEN) 6 MG/DL (6-23); CALCIUM, SERUM 7.4 MG/DL (8.5-10.4); CHLORIDE, SERUM 102 MMOL/L (96-112); CO2 (CARBON DIOXIDE) 29 MMOL/L (24-34); CREATININE 0.55 MG/DL (0.70-1.30); GFR AFRICAN AMERICAN 127 ML/MIN (>=60); GFR NON AFRICAN AMERICAN 109 ML/MIN (>=60); GLUCOSE, SERUM 159 MG/DL (60-99); POTASSIUM, SERUM 4.4 MMOL/L (3.5-5.3); SODIUM, SERUM 139 MMOL/L (135-148)
[2016-10-23 05:01] LABS: PHOSPHORUS, SERUM 1.6 MG/DL (2.5-4.5)
[2016-10-23 11:56] LABS: HEMOGLOBIN 7.1 g/dL (13.6-17.8)
[2016-10-23 11:58] LABS: HEMATOCRIT 20.5 % (40.0-51.0)
[2016-10-24 04:38] LABS: BASOPHILS 0.5 %; BASOPHILS ABSOLUTE 0.03 10/3/uL (0.0-0.16); EOSINOPHILS 1.3 %; EOSINOPHILS ABSOLUTE 0.08 10/3/uL (0.0-0.53); IMMATURE GRANULOCYTES 0.5 %; IMMATURE GRANULOCYTES ABSOLUTE 0.03 10/3/uL (0.0-0.11); LYMPHOCYTES 11.9 %; LYMPHOCYTES ABSOLUTE 0.74 10/3/uL (0.67-4.30); MEAN CORPUS HGB CONC 33.8 g/dL (32.0-36.0); MEAN CORPUSCULAR HEMOGLOB 33.2 pg (26.0-34.0); MEAN PLATELET VOLUME 9.4 fL (9.2-13.0); MONOCYTES 14.2 %; MONOCYTES ABSOLUTE 0.88 10/3/uL (0.21-1.20); NEUTROPHILS 71.6 %; NEUTROPHILS ABSOLUTE 4.44 10/3/uL (2.02-8.40); PLATELET COUNT 148 10/3/uL (150-400); RED CELL COUNT 1.99 10/6/uL (4.7-6.1)
[2016-10-24 04:41] LABS: HEMATOCRIT 19.5 % (40.0-51.0); HEMOGLOBIN 6.6 g/dL (13.6-17.8); MANUAL DIFF NO %; RBC DISTRIBUTION WIDTH 15.7 % (12.0-16.0); WHITE BLOOD CELLS 6.2 10/3/uL (4.5-10.5)
[2016-10-24 05:02] LABS: BUN (BLOOD UREA NITROGEN) 9 MG/DL (6-23); CALCIUM, SERUM 7.6 MG/DL (8.5-10.4); CHLORIDE, SERUM 99 MMOL/L (96-112); CO2 (CARBON DIOXIDE) 30 MMOL/L (24-34); CREATININE 0.66 MG/DL (0.70-1.30); GFR AFRICAN AMERICAN 118 ML/MIN (>=60); GFR NON AFRICAN AMERICAN 101 ML/MIN (>=60); GLUCOSE, SERUM 172 MG/DL (60-99); PHOSPHORUS, SERUM 1.8 MG/DL (2.5-4.5); POTASSIUM, SERUM 4.6 MMOL/L (3.5-5.3); SODIUM, SERUM 136 MMOL/L (135-148)
[2016-10-24 11:38] LABS: BASOPHILS 0.3 %; BASOPHILS ABSOLUTE 0.02 10/3/uL (0.0-0.16); EOSINOPHILS 1.5 %; EOSINOPHILS ABSOLUTE 0.09 10/3/uL (0.0-0.53); HEMATOCRIT 20.8 % (40.0-51.0); HEMOGLOBIN 7.3 g/dL (13.6-17.8); IMMATURE GRANULOCYTES 0.5 %; IMMATURE GRANULOCYTES ABSOLUTE 0.03 10/3/uL (0.0-0.11); LYMPHOCYTES 16.2 %; LYMPHOCYTES ABSOLUTE 0.99 10/3/uL (0.67-4.30); MANUAL DIFF NO %; MEAN CORPUS HGB CONC 35.1 g/dL (32.0-36.0); MEAN CORPUSCULAR HEMOGLOB 33.5 pg (26.0-34.0); MEAN CORPUSCULAR VOLUME 95.4 fL (80-100); MEAN PLATELET VOLUME 8.9 fL (9.2-13.0); MONOCYTES 12.6 %; MONOCYTES ABSOLUTE 0.77 10/3/uL (0.21-1.20); NEUTROPHILS 68.9 %; PLATELET COUNT 135 10/3/uL (150-400); RBC DISTRIBUTION WIDTH 16.2 % (12.0-16.0); RED CELL COUNT 2.18 10/6/uL (4.7-6.1); WHITE BLOOD CELLS 6.1 10/3/uL (4.5-10.5)
[2016-10-25 06:39] LABS: BASOPHILS 0.4 %; BASOPHILS ABSOLUTE 0.02 10/3/uL (0.0-0.16); HEMATOCRIT 21.8 % (40.0-51.0); HEMOGLOBIN 7.5 g/dL (13.6-17.8); IMMATURE GRANULOCYTES 0.6 %; IMMATURE GRANULOCYTES ABSOLUTE 0.03 10/3/uL (0.0-0.11); LYMPHOCYTES 14.8 %; LYMPHOCYTES ABSOLUTE 0.74 10/3/uL (0.67-4.30); MEAN CORPUS HGB CONC 34.4 g/dL (32.0-36.0); MEAN CORPUSCULAR HEMOGLOB 32.9 pg (26.0-34.0); MEAN CORPUSCULAR VOLUME 95.6 fL (80-100); MEAN PLATELET VOLUME 8.8 fL (9.2-13.0); MONOCYTES 10.4 %; MONOCYTES ABSOLUTE 0.52 10/3/uL (0.21-1.20); NEUTROPHILS 71.8 %; PLATELET COUNT 175 10/3/uL (150-400); RBC DISTRIBUTION WIDTH 15.9 % (12.0-16.0); RED CELL COUNT 2.28 10/6/uL (4.7-6.1)
[2016-10-25 06:43] LABS: MANUAL DIFF NO %
[2016-10-25 06:49] LABS: BUN (BLOOD UREA NITROGEN) 12 MG/DL (6-23); CALCIUM, SERUM 8.1 MG/DL (8.5-10.4); CHLORIDE, SERUM 99 MMOL/L (96-112); CO2 (CARBON DIOXIDE) 33 MMOL/L (24-34); CREATININE 0.75 MG/DL (0.70-1.30); GFR AFRICAN AMERICAN 112 ML/MIN (>=60); GFR NON AFRICAN AMERICAN 96 ML/MIN (>=60); GLUCOSE, SERUM 259 MG/DL (60-99); POTASSIUM, SERUM 4.6 MMOL/L (3.5-5.3); SODIUM, SERUM 136 MMOL/L (135-148)
[2016-10-26 06:11] LABS: BASOPHILS 0.4 %; BASOPHILS ABSOLUTE 0.02 10/3/uL (0.0-0.16); EOSINOPHILS 1.4 %; EOSINOPHILS ABSOLUTE 0.08 10/3/uL (0.0-0.53); HEMATOCRIT 23.3 % (40.0-51.0); IMMATURE GRANULOCYTES 1.1 %; IMMATURE GRANULOCYTES ABSOLUTE 0.06 10/3/uL (0.0-0.11); LYMPHOCYTES 11.8 %; LYMPHOCYTES ABSOLUTE 0.67 10/3/uL (0.67-4.30); MEAN CORPUS HGB CONC 34.3 g/dL (32.0-36.0); MEAN CORPUSCULAR HEMOGLOB 32.3 pg (26.0-34.0); MEAN PLATELET VOLUME 8.8 fL (9.2-13.0); MONOCYTES 10.4 %; MONOCYTES ABSOLUTE 0.59 10/3/uL (0.21-1.20); NEUTROPHILS 74.9 %; NEUTROPHILS ABSOLUTE 4.25 10/3/uL (2.02-8.40); PLATELET COUNT 214 10/3/uL (150-400); RBC DISTRIBUTION WIDTH 16.4 % (12.0-16.0); RED CELL COUNT 2.48 10/6/uL (4.7-6.1); WHITE BLOOD CELLS 5.7 10/3/uL (4.5-10.5)
[2016-10-26 06:12] LABS: MANUAL DIFF NO %
[2016-10-27 10:27] LABS: BASOPHILS 0.4 %; BASOPHILS ABSOLUTE 0.03 10/3/uL (0.0-0.16); EOSINOPHILS 1.4 %; HEMATOCRIT 25.5 % (40.0-51.0); HEMOGLOBIN 8.8 g/dL (13.6-17.8); IMMATURE GRANULOCYTES 1.3 %; IMMATURE GRANULOCYTES ABSOLUTE 0.09 10/3/uL (0.0-0.11); LYMPHOCYTES 10.8 %; LYMPHOCYTES ABSOLUTE 0.75 10/3/uL (0.67-4.30); MEAN CORPUS HGB CONC 34.5 g/dL (32.0-36.0); MEAN CORPUSCULAR HEMOGLOB 32.7 pg (26.0-34.0); MEAN CORPUSCULAR VOLUME 94.8 fL (80-100); MEAN PLATELET VOLUME 8.4 fL (9.2-13.0); MONOCYTES 8.7 %; NEUTROPHILS 77.4 %; NEUTROPHILS ABSOLUTE 5.35 10/3/uL (2.02-8.40); RBC DISTRIBUTION WIDTH 15.9 % (12.0-16.0); RED CELL COUNT 2.69 10/6/uL (4.7-6.1); WHITE BLOOD CELLS 6.9 10/3/uL (4.5-10.5)
[2016-10-27 10:29] LABS: MANUAL DIFF NO %; PLATELET COUNT 280 10/3/uL (150-400)
== END 2016-10-27 19:58 | DRG 456 ==
LOC: SDC/OF 09:32 → PACU 16:57 → MIC 19:25 → 1SO 10-24 16:57
PROVIDERS: Internal Medicine; Internal Medicine Critical Care Medicine; Nurse Practitioner Family; Orthopaedic Surgery; Orthopaedic Surgery Sports Medicine
PROC: 06H03DZ Insertion of Intraluminal Device into Inferior Vena Cava, Percutaneous Approach (ICD-10-PCS; 2016-10-19)
PROC: 8E0WXBZ Computer Assisted Procedure of Trunk Region (ICD-10-PCS; 2016-10-19)
PROC: 02HV33Z Insertion of Infusion Device into Superior Vena Cava, Percutaneous Approach (ICD-10-PCS; 2016-10-20)
PROC: 4A02X4A Measurement of Cardiac Electrical Activity, Guidance, External Approach (ICD-10-PCS; 2016-10-20)
PROC: 0QU007Z Supplement Lumbar Vertebra with Autologous Tissue Substitute, Open Approach (ICD-10-PCS; 2016-10-22)
PROC: 0RG60Z1 (ICD-10-PCS; principal; 2016-10-22 07:45)
PROC: 01NB0ZZ Release Lumbar Nerve, Open Approach (ICD-10-PCS; 2016-10-22 07:45)
PROC: 30233N1 Transfusion of Nonautologous Red Blood Cells into Peripheral Vein, Percutaneous Approach (ICD-10-PCS; 2016-10-23)
DX: M41.86 Other forms of scoliosis, lumbar region (principal); R57.1 Hypovolemic shock; D68.51 Activated protein C resistance; I95.9 Hypotension, unspecified; D62 Acute posthemorrhagic anemia; J98.11 Atelectasis; E11.42 Type 2 diabetes mellitus with diabetic polyneuropathy; J44.9 Chronic obstructive pulmonary disease, unspecified; E11.65 Type 2 diabetes mellitus with hyperglycemia; M51.17 Intervertebral disc disorders with radiculopathy, lumbosacral region; R33.8 Other retention of urine; I10 Essential (primary) hypertension; E03.9 Hypothyroidism, unspecified; I73.9 Peripheral vascular disease, unspecified; E66.9 Obesity, unspecified; G89.29 Other chronic pain; Z68.35 Body mass index [BMI] 35.0-35.9, adult; E78.2 Mixed hyperlipidemia; I49.9 Cardiac arrhythmia, unspecified; E87.70 Fluid overload, unspecified; G47.33 Obstructive sleep apnea (adult) (pediatric); Z87.891 Personal history of nicotine dependence; Z79.4 Long term (current) use of insulin; Z79.01 Long term (current) use of anticoagulants; Z79.899 Other long term (current) drug therapy; Z86.718 Personal history of other venous thrombosis and embolism; Z90.49 Acquired absence of other specified parts of digestive tract
CPT/HCPCS: 36415; 36430; 36569; 36600; 71010; 71275; 80048; 80076; 82330; 82533; 82607; 82803; 82805; 82947; 82962; 83036; 83735; 84100; 84132; 84145; 84295; 84439; 84443; 85014; 85018; 85025; 85610; 86850; 86900; 86901; 86920; 87040; 87641; 88304; 88311; 93005; 94640; 97116-GP; 97162-GP; 97164-GP; 97530-GP; A9270-GY; C1713; C1751; C1769; C1880; C9113; J0690; J1170; J1644; J2250; J2270; J2370; J2405; J2710; J3010; J3370; P9016; P9045; P9047; Q9966; Q9967